=== PATIENT | female | born 1995 | race Caucasian/White ===

== ENCOUNTER 2025-02-27 10:55 | Emergency (ER) | payer OTHER ==
[~2025-02-27] VITALS: Ht 170.2 cm; Wt 99.4 kg
--- NOTE | 2025-02-27 11:49 | Physician Documentation ---
History of Present Illness ~ Chief Complaint: Complications Stated Complaint: COMPLICATIONS Time Seen by MD: 11:10 HPI Patient is seen today with complaints of vaginal bleeding and spotting and cramping with positive at home test. Patient states her date of her last menstrual period was January 19, 2025 about five weeks ago. Patient states she has been spotting and cramping for a few days now starting just this last . Patient states he even felt a little lightheaded this morning. Patient has no other concern or complaint at this time. Patient admits to one previous that ended in miscarriage a 15 months ago. Medication Reconciliation Allergies: Coded Allergies: Penicillins (Verified Allergy, Unknown, 02/27/25) amoxicillin (Verified Allergy, Unknown, 02/27/25) Uncoded Allergies: SULFANOMIDE ANTIBIOTICS (Allergy, Unknown, 02/27/25) Review of Systems Constitutional: Denies: chills, fever, weakness Eyes: Denies: pain, blurred vision ENT: Denies: ear pain, nose pain, throat pain, mouth pain Respiratory: Denies: cough, shortness of breath Cardiovascular: Denies: chest pain, palpitations Gastrointestinal: Denies: abdominal pain, nausea, vomiting Genitourinary: Denies: burning, dysuria Female Genitalia: Denies: vaginal discharge, pelvic pain Neurological: Denies: headache, dizziness Musculoskeletal: Denies: pain, swelling Integumentary: Denies: rash, lesions Allergic/Immunologic: Denies: hives, itching Hematologic/Lymphatic: Denies: no symptoms reported Psychiatric: Denies: depression, anxiety Physical Exam Physical Exam Vital Signs: Temperature: 98.5, Source: Oral, Heart Rate: 86, Respiratory Rate: 15, BP: 151/91, Pulse Oximetry: 99, Weight: 99.390 Physical Exam General: Awake and Alert, no acute distress. HEENT: Conjunctiva pink, Sclera clear, Mucus Membranes moist. Neck: Supple without masses and tenderness. Resp: Unlabored. Lungs clear to auscultation bilaterally. Heart: Regular Rate and rhythm, normal S1 and S2 without murmur, rub or gallop. Abdomen: Soft and non tender no organomegaly Extremities: No cyanosis,clubbing or edema. Skin: Warm and Dry. Progress Results/Orders Results/Orders Vital Signs 02/27/25 10:59 Temp 98.5 Pulse 86 Resp 15 B/P (MAP) 151/91 Pulse Ox 99 Laboratory Tests Test 02/27/25 11:22 HCG Beta Subunit 73 Medical Decision Making Findings Patient is seen today with complaints of vaginal bleeding and spotting and cramping with positive at home test. Patient states her date of her last menstrual period was January 19, 2025 about five weeks ago. Patient states she has been spotting and cramping for a few days now starting just this last . Patient states he even felt a little lightheaded this morning. Patient has no other concern or complaint at this time. Patient admits to one previous that ended in miscarriage a few months ago. The patient did Have quantitative hCG drawn by blood in the ED today that returned low at 73. This is highly suggestive of spontaneous miscarriage. I did explain these results to the patient and offered patient to return in three days for repeat draw to be sure. Patient declined at this time. Patient will follow up with OB in 1-5 days if no better as needed sooner. Return to ED with any worsening, concerning or changing symptoms. Departure Disposition: 01 HOME / SELF CARE / HOMELESS Impression: Primary Impression: Complication of Qualified Codes: O26.91 - related conditions, unspecified, first trimester Additional Impression: Miscarriage Condition: Stable Discharge Instructions: Miscarriage, [id number] Additional Instructions: The patient did Have quantitative hCG drawn by blood in the ED today that returned low at 73. This is highly suggestive of spontaneous miscarriage. I did explain these results to the patient and offered patient to return in three days for repeat draw to be sure. Patient declined at this time. Patient will follow up with OB in 1-5 days if no better as needed sooner. Return to ED with any worsening, concerning or changing symptoms. Referrals: NO PRIMARY CARE PROVIDER (PCP) Signature Scribe Signature: No scribe Attestation: No scribe DONAL ALONZO PAC February 27, 2025 11:49
[2025-02-27 12:32] VITALS: BP 134/86; PULSE 88; RESP 18; TEMP 97.7; O2SAT 99
== END 2025-02-27 12:33 | disposition home or self-care (01) ==
LOC: ER 10:56
DX: O26.891 Other specified pregnancy related conditions, first trimester (principal); O03.9 Complete or unspecified spontaneous abortion without complication; Z88.0 Allergy status to penicillin; Z3A.01 Less than 8 weeks gestation of pregnancy
CPT/HCPCS: 36415; 84702; 99283